=== PATIENT | female | born 1995 | race African-American/Black ===

== ENCOUNTER 2018-07-04 02:38 | Emergency (ER) | payer OTHER ==
[~2018-07-04] VITALS: Ht 170.2 cm; Wt 113.4 kg
[2018-07-04] MEDS ORDERED: NAPROXEN500 M2 ORAL (02:45)
[2018-07-04] MEDS ORDERED: PREDNISONE20 MG ORAL (02:59)
[2018-07-04] MEDS ORDERED: BENADRYL25 MG ORAL (02:59)
[2018-07-04] MEDS ORDERED: IBUPROFEN600 MG ORAL (02:59)
--- NOTE | 2018-07-04 02:59 | Emergency Room Report ---
History of Present Illness General Chief Complaint: Skin Rash/Abscess Source: Patient Present Illness HPI Is a 22-year-old female with no past medical history. She presents with chief complaint of allergic reaction. Acute onset of urticaria the broke out about one to 2 hours ago. This occurred at work. She was taking Naprosyn, Prevacid, Zanaflex for back pain. She took Naprosyn tonight and shortly afterward she broke out. No allergy to Motrin or Advil. No allergy to Excedrin. Itching in nature. No respiratory complaint. No nausea no vomiting. No fever chills. Nothing made it better. Scratching made it worse. Allergies: Coded Allergies: CODEINE (Verified Allergy, Unknown, 07/04/18) Patient History Past Medical History: see triage record, old chart reviewed Past Surgical History: none Pertinent Family History: none Social History: Denies: smoking Last Menstrual Period: Jun Now: No Immunizations: other Reviewed Nursing Documentation: PMH: Agreed; PSxH: Agreed Nursing Documentation-PMH Past Medical History: No Stated History Review of Systems Eye: Denies: eye pain, blurred vision ENT: Denies: ear pain, nose congestion, throat swelling Respiratory: Denies: cough, shortness of breath Cardiovascular: Denies: chest pain, palpitations Gastrointestinal: Denies: abdominal pain, diarrhea, nausea, vomiting Musculoskeletal: Denies: back pain, joint pain Skin: Reports: rash Neurological: Denies: headache, numbness Endocrine: Denies: increased thirst, increased urine Hematologic/Lymphatic: Denies: easy bruising All Other Systems: negative except mentioned in HPI Physical Exam Vital Signs Date Time Temp Pulse Resp B/P (MAP) Pulse Ox O2 Delivery O2 Flow Rate FiO2 07/04/18 02:40 98.3 73 18 119/69 96 Room Air 98.2 vitals normal Sp02 EP Interpretation: reviewed, normal General Appearance: well appearing, no apparent distress, alert Head: normocephalic, atraumatic Eyes: bilateral eye PERRL, bilateral eye EOMI ENT: hearing grossly normal, normal pharynx Neck: full range of motion, supple, no meningismus Respiratory: chest non-tender, lungs clear, normal breath sounds Cardiovascular #1: regular rate, rhythm, no murmur Gastrointestinal: normal bowel sounds, non tender, no mass, no organomegaly, no bruit, non-distended Musculoskeletal: back normal, gait/station normal, normal range of motion Neurologic: alert, oriented x3 Psychiatric: mood/affect normal Skin: warm/dry, rash - diffuse urticaria Medical Decision Making Diagnostic Impression: Primary Impression: Allergic reaction caused by a drug Qualified Codes: T78.40XA - Allergy, unspecified, initial encounter ER Course She presents with allergic reaction. Most likely secondary to Naprosyn or Zanaflex. No anaphylaxis. No rest or distress. Better after Benadryl and Solu -Medrol. We'll discharge home. Last Vital Signs Date Time Temp Pulse Resp B/P (MAP) Pulse Ox O2 Delivery O2 Flow Rate FiO2 07/04/18 02:40 98.3 73 18 119/69 96 Room Air 98.2 Status: improved Disposition: HOME, SELF-CARE Condition: Stable Scripts Ibuprofen* (MOTRIN*) 600 Mg Tablet 600 MG ORAL THREE TIMES A DAY, #30 TAB 0 Refills Prov: PAULINO BENAVIDEZ M.D. 07/04/18 Diphenhydramine Hcl* (BENADRYL*) 25 Mg Capsule 50 MG ORAL Q6H PRN for Itching, #30 CAP Prov: PAULINO BENAVIDEZ M.D. 07/04/18 Prednisone* (PREDNISONE*) 20 Mg Tablet 60 MG ORAL DAILY, #12 TAB Prov: PAULINO BENAVIDEZ M.D. 07/04/18 Additional Instructions: Stop the new medications. Follow-up with your DrJihan in 2 to 3 days for recheck if not better. Return for respiratory problem or tongue swelling. PAULINO BENAVIDEZ M.D. Jul 04, 2018 02:59
[2018-07-04] MEDS ORDERED: DiphenhydrAMINE 50mg/ml Inj IVP ONE (03:00)
[2018-07-04] MEDS ORDERED: Solu-MEDROL 125mg Inj IVP ONE (03:00)
[2018-07-04 03:26] VITALS: BP 119/69
== END 2018-07-04 03:26 | disposition home or self-care (01) ==
LOC: EMR 03:01
DX: L50.9 Urticaria, unspecified (principal); T50.905A Adverse effect of unspecified drugs, medicaments and biological substances, initial encounter; Z88.6 Allergy status to analgesic agent; Y92.9 Unspecified place or not applicable
CPT/HCPCS: 96374; 96375; 99284; J1200; J2930